=== PATIENT | female | born 1970 | race Caucasian/White ===

== ENCOUNTER → 2016-06-08 | Outpatient (CLI) | payer OTHER ==
[~2016-06-08] MED LIST: CHOL100084 PO; DILT180C PO; DIPH50CA33 PO; FLUT16SP22 NS; HCTZ12.5T PO; LISI-596 PO; LORA10CA PO; NITR-65 PO; OMEG1CAP51 PO; OMEP20CA12 PO; PHEN200T27 PO; POTA20TA15 PO; WARF5TAB PO
--- OUTSIDE RECORDS SUMMARY | 2016-06-08 12:40 | XMS REPORT | Continuity of Care Document ---
Author Author [facility] Organization [facility] Address Unknown Phone Unavailable Care Team Providers Care Asw/Asuw Tactical Air Controller Name Role Phone MOSHE JUAREZ DO PCP Insurance Providers Payer Name Policy Number Subscriber Name Relationship Enter Insurance Name [id number] Edouard Perrin Advance Directives Directive Response Recorded [...] Severity Reaction Status Last Updated barium iodide ([id number]) Allergy Unknown Active 12/08/14 Immunizations No immunization records. Vital Signs Acute Vital Signs Vital Response Date/Time Temperature (Fahrenheit) 98.4 degrees F (97.6 - 99.5) Temperature (Calculated Celsius) 36.29054 degrees C (36.4 - 37.5) Pulse Rate (adult) 98 bpm (60 - 90) Respiratory Rate 18 bpm (12 - 24) O2 Sat by Pulse Oximetry 98 % (88 - 100) Blood Pressure 148/92 mm Hg Blood Pressure Mean 110 mm Hg Pain Pain Intensity 0 Height (Feet) 5 feet Height (Inches) 3 inches Height (Calculated Centimeters) 160.317683 cm Weight (Pounds) 265 pounds Weight (Calculated Kilograms) 120.292417 kilograms Calculated BMI 46.94 Results Laboratory Results [...] SELECTED GROUPS OF HIGH RISK PATIENTS. [employer] CONSENSUS CONFERENCE ON ANTITHROMBOTIC THERAPY (2000). Urine Color RED * 12/07/2014 12:20am 12/08/2014 12:56am Urine Clarity VERY CLOUDY * 12/07/2014 12:20am 12/08/2014 12:56am Urine pH 5 5-9 12/07/2014 12:20am 12/08/2014 12:56am Urine Specific [place] 1.015 * 1.016-1.022 12/07/2014 12:20am 2014 12:56am [...] Encounter Location Date/Time Departed Emergency Room [facility] 12/07/14 11:51pm Registered Clinic [facility] 11/23/14 7:55am Recent Diagnosis
--- NOTE | 2016-06-08 17:16 | Diagnostic Imaging Report ---
Bilateral screening mammogram. The current study was also evaluated with a Computer Aided Detection (CAD) system. INDICATION: Screening. No current complaints stated on the questionnaire. COMPARISON: 10/27/14. FINDINGS: The breasts are composed of scattered fibroglandular densities. There are occasional benign-appearing calcifications. Allowing for technique and positional differences, no suspicious change is seen. IMPRESSION: No significant change. ACR BI-RADS Category 2: Benign findings. Result letter will be mailed to the patient. Note: At least 10% of breast cancer is not imaged by mammography. Dictated by: Dictated on workstation # [id number]
== END ==
LOC: RAD 12:29
PROVIDERS: ATTEND Obstetrics & Gynecology Gynecology
DX: Z12.31 Encounter for screening mammogram for malignant neoplasm of breast (principal)
CPT/HCPCS: 77067

== ENCOUNTER → 2016-06-08 | Outpatient (CLI) | payer OTHER ==
--- OUTSIDE RECORDS SUMMARY | 2016-06-08 12:32 | XMS REPORT | Continuity of Care Document ---
Author Author [facility] Organization [facility] Address Unknown Phone Unavailable Care Team Providers Care Slope Hoist Operator Name Role Phone MOSHE JUAREZ DO PCP Insurance Providers Payer Name Policy Number Subscriber Name Relationship Enter Insurance Name [id number] Edouard Perrin Advance Directives Directive Response Recorded Date/Time Advance Directives No 12/07/14 11:57pm Resuscitation Status Full Code 12/07/14 11:57pm Problems Medical Problems Problem Onset Date Status Urinary tract infection Unknown Active Hematuria Unknown Active Medications Medication Dose Route Sig Days/Qty Instructions Order Date Discontinued Date Status Warfarin Sodium 5 Mg PO DAILY 12/08/14 Active Lisinopril 20 Mg PO DAILY 12/08/14 Active Diltiazem Hcl 180 Mg PO DAILY 12/08/14 Active Hydrochlorothiazide 12.5 Mg PO DAILY 12/08/14 Active Omeprazole 20 Mg PO DAILY 30 Qty 12/08/14 Active Potassium Chloride 20 Meq PO DAILY 12/08/14 Active Docosahexanoic Acid/Epa 1 Cap PO DAILY 12/08/14 Active Loratadine 10 Mg PO DAILY 12/08/14 Active Cholecalciferol 1,000 Unit PO DAILY 12/08/14 Active Fluticasone Propionate 2 Sprays NS DAILY 12/08/14 Active Diphenhydramine HCl 25 Mg PO BEDTIME 12/08/14 Active Nitrofurantoin Macrocrystals 1 Each PO TWICE A DAY 14 Qty FOR INFECTION 12/08/14 Active Phenazopyridine HCl 1 Each PO THREE TIMES A DAY PRN PAIN 15 Qty Active Social History Social History Problem Response Recorded Date/Time Alcohol Use Denies Use 12/07/2014 11:57pm Recreational Drug Use No 12/07/2014 11:57pm Recent Foreign Travel No 12/07/2014 11:57pm Recent Infectious Disease Exposure No 12/07/2014 11:57pm Hospitalization with Isolation Denies 12/07/2014 11:57pm Smoking Status Never a Smoker 12/07/2014 11:57pm Query Response Start Date Stop Date Smoking Status Never a Smoker Hospital Discharge Instructions No hospital discharge instructions. Plan of Care No plan of care. Functional Status No functional status results. Allergies, Adverse Reactions, Alerts Allergen Type Severity Reaction Status Last Updated barium iodide ([id number]) Allergy Unknown Active 12/08/14 Immunizations No immunization records. Vital Signs Acute Vital Signs Vital Response Date/Time Temperature (Fahrenheit) 98.4 degrees F (97.6 - 99.5) Temperature (Calculated Celsius) 36.87005 degrees C (36.4 - 37.5) Pulse Rate (adult) 98 bpm (60 - 90) Respiratory Rate 18 bpm (12 - 24) O2 Sat by Pulse Oximetry 98 % (88 - 100) Blood Pressure 148/92 mm Hg Blood Pressure Mean 110 mm Hg Pain Pain Intensity 0 Height (Feet) 5 feet Height (Inches) 3 inches Height (Calculated Centimeters) 160.552487 cm Weight (Pounds) 265 pounds Weight (Calculated Kilograms) 120.478173 kilograms Calculated BMI 46.94 Results Laboratory Results Test Name Result Units Flags Reference Collection Date/Time Result Date/ Time Comments Prothrombin Time 28.2 SEC H 12.2-14.7 12/08/2014 12:18am 12/08/2014 12: 38am INR Comment 2.6 H 0.8-1.4 12/08/2014 12:18am 12/08/2014 12:38am INTERPRETIVE DATA SUGGESTED THERAPEUTIC RANGE FOR INR'S: VENOUS THROMBOSIS, PULMONARY EMBOLISM, OR PREVENTION OF SYSTEMIC EMBOLISM (EG. IN ATRIAL FIBRILLATION): 2.0 - 3.0 MECHANICAL PROSTHETIC HEART VALVES: 2.5 - 3.5* *NOTE: INR'S UP TO 4.5 MAY BE NECESSARY IN SELECTED GROUPS OF HIGH RISK PATIENTS. [employer] CONSENSUS CONFERENCE ON ANTITHROMBOTIC THERAPY (2000). Urine Color RED * 12/07/2014 12:20am 12/08/2014 12:56am Urine Clarity VERY CLOUDY * 12/07/2014 12:20am 12/08/2014 12:56am Urine pH 5 5-9 12/07/2014 12:20am 12/08/2014 12:56am Urine Specific [place] 1.015 * 1.016-1.022 12/07/2014 12:20am 2014 12:56am Urine Protein 3+ * NEGATIVE 12/07/2014 12:20am 12/08/2014 12:56am Urine Glucose (UA) NEGATIVE NEGATIVE 12/07/2014 12:20am 12/08/2014 12 :56am Urine RBC (Auto) 5+ * NEGATIVE 12/07/2014 12:20am 12/08/2014 12:56am Urine Ketones NEGATIVE NEGATIVE 12/07/2014 12:20am 12/08/2014 12: 56am Urine Nitrite NEGATIVE NEGATIVE 12/07/2014 12:20am 12/08/2014 12: 56am Urine Bilirubin NEGATIVE NEGATIVE 12/07/2014 12:20am 12/08/2014 12: 56am Urine Urobilinogen NORMAL MG/DL NORMAL 12/07/2014 12:20am 12/08/2014 12 :56am Urine Leukocyte Esterase 3+ * NEGATIVE 12/07/2014 12:20am 12/08/2014 12 :56am Urine RBC TNTC /HPF * 12/07/2014 12:20am 12/08/2014 12:56am Urine WBC 5-10 /HPF * 12/07/2014 12:20am 12/08/2014 12:56am Urine Bacteria FEW /HPF * 12/07/2014 12:20am 12/08/2014 12:56am Urine Crystals NONE /LPF 12/07/2014 12:20am 12/08/2014 12:56am Urine Casts NONE /LPF 12/07/2014 12:20am 12/08/2014 12:56am Urine Mucus NEGATIVE /LPF 12/07/2014 12:20am 12/08/2014 12:56am Urine Culture Indicated YES 12/07/2014 12:20am 12/08/2014 12:56am Procedures No known history of procedures. Encounters Encounter Location Date/Time Departed Emergency Room [facility] 12/07/14 11:51pm Registered Clinic [facility] 11/23/14 7:55am Recent Diagnosis
--- NOTE | 2016-06-08 14:28 | Diagnostic Imaging Report ---
PROCEDURE: CT chest without contrast. TECHNIQUE: Multiple noncontiguous 1 mm thick axial images were obtained through the chest without the use of intravenous contrast. This is performed the in the supine inspiration, expiration and prone inspiration based on a HRCT protocol, sampling images in the upper, mid and lower lung zones. INDICATION: Interstitial lung disease. No prior studies are available for comparison. FINDINGS: There is nonspecific focal scarring in the right lung apex and in the posterior segment of the right and left lower lobes. There is relative sparing of the rest of the segments in the lower lobes except for mild extension into the superior segment of the lower lobe on both sides. There is associated mild bronchiectasis. There is no significant airspace consolidation or groundglass opacity to suggest active disease. The findings are nonspecific and could be related to scarring after possibly aspiration pneumonitis and right upper lobe infection. No significant air-trapping is seen on the expiratory phase. No pleural effusion. No pericardial effusion. There is no mediastinal mass. Sections in the upper abdomen demonstrate no definite abnormality. The osseous structures appear grossly unremarkable. IMPRESSION: Nonspecific focal areas of scarring involving mostly the posterior segments of the lower lobes and the right lung apex with no active consolidation or groundglass opacity seen. Dictated by: Dictated on workstation # [id number]
== END ==
LOC: RAD 12:28
PROVIDERS: ATTEND Internal Medicine
DX: J84.9 Interstitial pulmonary disease, unspecified (principal)
CPT/HCPCS: 71250

== ENCOUNTER → 2016-06-09 | Outpatient (CLI) | payer OTHER ==
--- OUTSIDE RECORDS SUMMARY | 2016-06-09 16:04 | XMS REPORT | Continuity of Care Document ---
Author Author [facility] Organization [facility] Address Unknown Phone Unavailable Care Team Providers Care Hot Metal Charger Name Role Phone MOSHE JUAREZ DO PCP Insurance Providers Payer Name Policy Number Subscriber Name Relationship Enter Insurance Name [id number] Edouard Perrin Advance Directives Directive Response Recorded [...] Severity Reaction Status Last Updated barium iodide ([id number]) Allergy Unknown Active 12/08/14 Immunizations No immunization records. Vital Signs Acute Vital Signs Vital Response Date/Time Temperature (Fahrenheit) 98.4 degrees F (97.6 - 99.5) Temperature (Calculated Celsius) 36.97734 degrees C (36.4 - 37.5) Pulse Rate (adult) 98 bpm (60 - 90) Respiratory Rate 18 bpm (12 - 24) O2 Sat by Pulse Oximetry 98 % (88 - 100) Blood Pressure 148/92 mm Hg Blood Pressure Mean 110 mm Hg Pain Pain Intensity 0 Height (Feet) 5 feet Height (Inches) 3 inches Height (Calculated Centimeters) 160.541198 cm Weight (Pounds) 265 pounds Weight (Calculated Kilograms) 120.953643 kilograms Calculated BMI 46.94 Results Laboratory Results [...] SELECTED GROUPS OF HIGH RISK PATIENTS. [employer] CONSENSUS CONFERENCE ON ANTITHROMBOTIC THERAPY (2000). Urine Color RED * 12/07/2014 12:20am 12/08/2014 12:56am Urine Clarity VERY CLOUDY * 12/07/2014 12:20am 12/08/2014 12:56am Urine pH 5 5-9 12/07/2014 12:20am 12/08/2014 12:56am Urine Specific [place] 1.015 * 1.016-1.022 12/07/2014 12:20am 2014 12:56am [...] Encounter Location Date/Time Departed Emergency Room [facility] 12/07/14 11:51pm Registered Clinic [facility] 11/23/14 7:55am Recent Diagnosis
== END ==
LOC: RT 16:02
PROVIDERS: ATTEND Internal Medicine
DX: J84.9 Interstitial pulmonary disease, unspecified (principal)
CPT/HCPCS: 94060; 94726; 94729; 94761

== ENCOUNTER 2017-07-18 19:12 | Emergency (ER) | payer OTHER ==
[~2017-07-18] VITALS: Ht 160 cm; Wt 115.7 kg
--- OUTSIDE RECORDS SUMMARY | 2017-07-18 19:17 | XMS REPORT | Continuity of Care Document ---
Author Author [facility] Organization [facility] Address Unknown Phone Unavailable Allergies Active Description Code Type Severity Reaction Onset Reported/Identified Relationship to Patient Clinical Status Yes barium iodide [id number] Drug Allergy Unknown N/A 12/08/2014 Medications There is no data. Problems Date Dx Coded Attending Type Code Diagnosis Diagnosed By 10/27/2014 Ot 611.72 10/27/2014 Ot 625.8 10/27/2014 Ot 611.72 10/27/2014 Ot 625.8 11/23/2014 Ot 611.72 11/23/2014 Ot 625.8 11/23/2014 MOSHE JUAREZ DO Ot 611.72 12/08/2014 Ot 611.72 12/08/2014 Ot 625.8 12/08/2014 MOSHE JUAREZ DO Ot 611.72 12/08/2014 GHANSHYAM PHAN MD Ot 473.9 12/08/2014 JOHANNA BURRELL, BEVERLY Elliott Ot 599.0 URIN TRACT INFECTION NOS 12/08/2014 JOHANNA BURRELL, BEVERLY Elliott Ot 599.70 HEMATURIA, UNSPECIFIED 06/06/2016 Ot 611.72 LUMP OR MASS IN BREAST 06/06/2016 Ot 625.8 FEM GENITAL SYMPTOMS NEC 06/06/2016 MOSHE JUAREZ DO Ot 611.72 LUMP OR MASS IN BREAST 06/06/2016 GHANSHYAM PHAN MD Ot 473.9 CHRONIC SINUSITIS NOS 06/07/2016 Ot 611.72 LUMP OR MASS IN BREAST 06/07/2016 Ot 625.8 FEM GENITAL SYMPTOMS NEC 06/07/2016 MOSHE JUAREZ DO Ot 611.72 LUMP OR MASS IN BREAST 06/07/2016 GHANSHYAM PHAN MD Ot 473.9 CHRONIC SINUSITIS NOS 06/08/2016 GAUDENCIO POWER DO Ot Z12.31 ENCNTR SCREEN MAMMOGRAM FOR MALIGNANT NE 06/08/2016 FABIEN STEEL MD Ot J84.9 INTERSTITIAL PULMONARY DISEASE, UNSPECIF 06/09/2016 FABIEN STEEL MD, Ot J84.9 INTERSTITIAL PULMONARY DISEASE, UNSPECIF 06/12/2016 FABIEN STEEL MD, Ot J84.9 INTERSTITIAL PULMONARY DISEASE, UNSPECIF 07/07/2016 FABIEN STEEL MD, Ot J84.9 INTERSTITIAL PULMONARY DISEASE, UNSPECIF 10/06/2016 Ot 611.72 LUMP OR MASS IN BREAST 10/06/2016 Ot 625.8 FEM GENITAL SYMPTOMS NEC 10/06/2016 MOSHE JUAREZ DO Ot 611.72 LUMP OR MASS IN BREAST 10/06/2016 EMILIE BURRELL, GHANSHYAM De Los Santos Ot 473.9 CHRONIC SINUSITIS NOS 10/06/2016 GAUDENCIO POWER DO Ot Z12.31 ENCNTR SCREEN MAMMOGRAM FOR MALIGNANT NE 10/06/2016 FABIEN STEEL MD, Ot J84.9 INTERSTITIAL PULMONARY DISEASE, UNSPECIF 10/06/2016 FABIEN STEEL MD, Ot J84.9 INTERSTITIAL PULMONARY DISEASE, UNSPECIF 12/23/2016 GAUDENCIO POWER DO, Ot Z12.31 ENCNTR SCREEN MAMMOGRAM FOR MALIGNANT NE 12/23/2016 FABIEN STEEL MD, Ot84.9 INTERSTITIAL PULMONARY DISEASE, UNSPECIF 12/23/2016 FABIEN STEEL MD, Ot84.9 INTERSTITIAL PULMONARY DISEASE, UNSPECIF Procedures There is no data. Results There is no data. Encounters ACCT No. Visit Date/Time Discharge Status Pt. Type Provider Facility Loc./Unit Complaint [id number] 06/09/2016 16:02:00 06/09/2016 23:59:59 CLS Outpatient FABIEN STEEL MD [facility] RT ILD [id number] 06/08/2016 12:29:00 06/08/2016 23:59:59 CLS Outpatient GAUDENCIO POWER DO [facility] RAD SCREENING [id number] 06/08/2016 12:28:00 06/08/2016 23:59:59 CLS Outpatient FABIEN STEEL MD [facility] RAD ILD [id number] 12/07/2014 23:51:00 12/08/2014 01:39:00 DIS Emergency BEVERLY SPENCER MD [facility] ER POSS UTI,BLOOD IN URINE [id number] 11/23/2014 07:55:00 11/23/2014 23:59:59 CLS Outpatient GHANSHYAM PHAN MD [facility] RAD CHRONIC SINUSITIS [id number] 10/27/2014 10:14:00 10/27/2014 23:59:59 CLS Outpatient MOSHE JUAREZ DO [facility] RAD SCREENING [id number] 12/21/2012 12:50:00 12/21/2012 23:59:59 CLS Outpatient [id number] 11/24/2012 16:12:00 11/24/2012 23:59:59 CLS Outpatient [id number] 07/26/2012 09:54:00 Document Registration [id number] 01/02/2012 09:59:00 Document Registration
[2017-07-18 21:18] LABS: BASOPHILS % (AUTO) 0 % (0-10); EOSINOPHILS # (AUTO) 0.2 10^3/uL (0.0-0.3); EOSINOPHILS % (AUTO) 2 % (0-10); HEMATOCRIT 41 % (35-52); LYMPHOCYTES # (AUTO) 2.1 X 10^3 (1.0-4.0); LYMPHOCYTES % (AUTO) 22 % (12-44); MEAN CORPUSCULAR HEMOGLOBIN 29 PG (25-34); MEAN CORPUSCULAR HGB CONC 35 G/DL (32-36); MEAN CORPUSCULAR VOLUME 85 FL (80-99); MEAN PLATELET VOLUME 10.5 FL (7.4-10.4); MONOCYTES # (AUTO) 0.4 X 10^3 (0.0-1.0); MONOCYTES % (AUTO) 4 % (0-12); NEUTROPHILS # (AUTO) 7.1 X 10^3 (1.8-7.8); NEUTROPHILS % (AUTO) 72 % (42-75); PLATELET COUNT 315 10^3/uL (130-400); RED BLOOD COUNT 4.79 10^6/uL (4.35-5.85); RED CELL DISTRIBUTION WIDTH 13.3 % (10.0-14.5); WHITE BLOOD COUNT 9.8 10^3/uL (4.3-11.0)
[2017-07-18 21:33] LABS: INR 1.5 (0.8-1.4); PROTHROMBIN TIME PATIENT 18.4 SEC (12.2-14.7)
[2017-07-18 21:42] LABS: ALANINE AMINOTRANSFERASE 22 U/L (0-55); ALBUMIN 4.3 GM/DL (3.2-4.5); ALKALINE PHOSPHATASE 48 U/L (40-136); BILIRUBIN,TOTAL 0.4 MG/DL (0.1-1.0); BUN/CREATININE RATIO 14; CALCIUM 9.8 MG/DL (8.5-10.1); CARBON DIOXIDE 24 MMOL/L (21-32); CHLORIDE 102 MMOL/L (98-107); CREATININE SERUM 0.69 MG/DL (0.60-1.30); GFR ESTIMATED > 60; GLUCOSE 105 MG/DL (70-105); POTASSIUM 3.6 MMOL/L (3.6-5.0); SODIUM 136 MMOL/L (135-145); TOTAL PROTEIN 8.3 GM/DL (6.4-8.2)
--- NOTE | 2017-07-18 21:56 | ED General ---
General Chief Complaint: Upper Extremity Stated Complaint: LEFT ARM TINGLING Nursing Triage Note: pt c/o numbness in left forearm intermittently x 1 week, but persistent today. no known injury. reports tingling in upper arm at times also. she reports inr was elevated et potassium was low last week. hx of antiphospholipid antibody syndrome. Nursing Sepsis Screen: No Definite Risk Source of Information: Patient Exam Limitations: No Limitations History of Present Illness Date Seen by Provider: Jul 18, 2017 Time Seen by Provider: 20:20 Initial Comments This 47-year-old woman presents to emergency room with complaints of numbness and pain in the left arm with fluctuating intensity over the past week. She reports it is very irritating to have her that it on her wrist earlier today. She denies any neck problems or known history of cervical disc disease. She has had several tension headaches recently. She took Tylenol without much benefit. She took Xanax at 17:00 which also did not help much. She reports last week her potassium and INR were elevated. She is concerned that her symptoms may be related to cardiac causes. She has had no shortness of breath or chest pain. She does have history of DVT and is on warfarin therapy. She also has a history of Sjogren's and interstitial lung disease. Allergies and Home Medications Allergies Coded Allergies: barium iodide (Unverified Allergy, Unknown, 12/08/14) Home Medications Cholecalciferol 1,000 Unit Tab, 1,000 UNIT PO DAILY, (Reported) Diltiazem Hcl 180 Mg Cap.sr.24h, 180 MG PO DAILY, (Reported) Diphenhydramine Hcl 50 Mg Tablet, 25 MG PO HS, (Reported) Docosahexanoic Acid/Epa 1 Cap Capsule, 1 CAP PO DAILY, (Reported) Fluticasone Propionate 16 Gm Naspr, 2 SPRAYS NS DAILY PRN for CONGESTION, ( Reported) Gabapentin 300 Mg Capsule, 300 MG PO BID PRN for PAIN-MODERATE TO SEVERE Prescribed by: BEVERLY PICKETT on 07/18/17 2875 Hydrochlorothiazide 12.5 Mg Cap, 12.5 MG PO DAILY, (Reported) Lisinopril 20 Mg Tablet, 20 MG PO DAILY, (Reported) Loratadine 10 Mg Capsule, 10 MG PO DAILY, (Reported) Omeprazole 20 Mg Capsule.dr, 20 MG PO DAILY, (Reported) Potassium Chloride 20 Meq Tab.prt.sr, 40 MEQ PO DAILY, (Reported) Prednisone 20 Mg Tab, 20 MG PO DAILY Prescribed by: BEVERLY PICKETT on 07/18/172234 Warfarin Sodium 5 Mg Tablet, 5 MG PO DAILY, (Reported) Patient Home Medication List Home Medication List Reviewed: Yes Constitutional: no symptoms reported EENTM: no symptoms reported Respiratory: no symptoms reported Cardiovascular: no symptoms reported Gastrointestinal: no symptoms reported Genitourinary: no symptoms reported Musculoskeletal: see HPI Skin: no symptoms reported Psychiatric/Neurological: See HPI Hematologic/Lymphatic: No Symptoms Reported Past Amzmqvr-Dbudfl-Qkupwh Hx Patient Social History Alcohol Use: Denies Use Recreational Drug Use: No Smoking Status: Never a Smoker Recent Foreign Travel: No Contact w/Someone Who Travel: No Recent Infectious Disease Expo: No Recent Hopitalizations: No Immunizations Up To Date Date of Influenza Vaccine: Feb 05, 2017 Surgeries History of Surgeries: Yes (lumbar laminectomy, right carpal tunnel, right thumb fusion) Surgeries: Bladder Surgery, Orthopedic Respiratory History of Respiratory Disorde: Yes (INTERSTITIAL LUNG DISEASE) Cardiovascular History of Cardiac Disorders: Yes (TACHYCARDIA) Cardiac Disorders: Deep Vein Thrombosis, Hypertension Neurological History of Neurological Disord: No Reproductive System Last Menstrual Period: Jun 25, 2017 Hx Reproductive Disorders: No Genitourinary History of Genitourinary Disor: No Gastrointestinal History of Gastrointestinal Di: Yes Gastrointestinal Disorders: Gastroesophageal Reflux Musculoskeletal History of Musculoskeletal Dis: Yes Musculoskeletal Disorders: Chronic Back Pain Endocrine History of Endocrine Disorders: Yes (Sjogren's) HEENT History of HEENT Disorders: No Cancer History of Cancer: No Psychosocial History of Psychiatric Problem: No Integumentary History of Skin or Integumenta: No Blood Transfusions History of Blood Disorders: Yes (BLOOD CLOT, ANTIPHOSPHOLIPID SYNDROME) Family Medical History Significant Family History: DVT/PE, Hypertension Physical Exam Vital Signs Vital Signs - First Documented 07/18/17 19:41 Temp 98.9 Pulse 100 Resp 16 B/P (MAP) 166/10 (61) Pulse Ox 98 O2 Delivery Room Air Capillary Refill : Less Than 3 Seconds General Appearance: No Apparent Distress, WD/WN HEENT: PERRL/EOMI, Normal ENT Inspection Neck: Normal Inspection, Supple, Tender Lateral Respiratory: Lungs Clear, Normal Breath Sounds, No Accessory Muscle Use, No Respiratory Distress Cardiovascular: Regular Rate, Rhythm, No Edema, No Murmur, Normal Peripheral Pulses Gastrointestinal: Non Tender, Soft Extremity: Normal Inspection, No Pedal Edema, Other (Mild tenderness to palpation of the left upper extremity. Range of motion, sensation, capillary refill, and radial pulse normal.) Neurologic/Psychiatric: Alert, Oriented x3, No Motor/Sensory Deficits, Normal Mood/Affect, lapper II-XII Norm as Tested Progress/Results/Core Measures Suspected Sepsis Recent Fever Within 48 Hours: No Infection Criteria Present: None New/Unexplained Altered Menta: No Sepsis Screen: No Definite Risk Sepsis Diagnosis: SIRS Temperature:98.9 Pulse: 100 Respiratory Rate: 16 Laboratory Tests 07/18/17 21:10: White Blood Count 9.8 Blood Pressure 166 /10 Mean: 61 Laboratory Tests 07/18/17 21:10: Creatinine 0.69, INR Comment 1.5H, Platelet Count 315, Total Bilirubin 0.4 Results/Orders Lab Results Laboratory Tests Test 07/18/17 21:10 Range/Units White Blood Count 9.8 4.3-11.0 10^3/uL Red Blood Count 4.79 4.35-5.85 10^6/uL Hemoglobin 14.0 11.5-16.0 G/DL Hematocrit 41 35-52 % Mean Corpuscular Volume 85 80-99 FL Mean Corpuscular Hemoglobin 29 25-34 PG Mean Corpuscular Hemoglobin Concent 35 32-36 G/DL Red Cell Distribution Width 13.3 10.0-14.5 % Platelet Count 315 130-400 10^3/uL Mean Platelet Volume 10.5 H 7.4-10.4 FL Neutrophils (%) (Auto) 72 42-75 % Lymphocytes (%) (Auto) 22 12-44 % Monocytes (%) (Auto) 4 0-12 % Eosinophils (%) (Auto) 2 0-10 % Basophils (%) (Auto) 0 0-10 % Neutrophils # (Auto) 7.1 1.8-7.8 X 10^3 Lymphocytes # (Auto) 2.1 1.0-4.0 X 10^3 Monocytes # (Auto) 0.4 0.0-1.0 X 10^3 Eosinophils # (Auto) 0.2 0.0-0.3 10^3/uL Basophils # (Auto) 0.0 0.0-0.1 10^3/uL Prothrombin Time 18.4 H 12.2-14.7 SEC INR Comment 1.5 H 0.8-1.4 Activated Partial Thromboplast Time 32 24-35 SEC Sodium Level 136 135-145 MMOL/L Potassium Level 3.6 3.6-5.0 MMOL/L Chloride Level 102 98-107 MMOL/L Carbon Dioxide Level 24 21-32 MMOL/L Anion Gap 10 5-14 MMOL/L Blood Urea Nitrogen 10 7-18 MG/DL Creatinine 0.69 0.60-1.30 MG/DL Estimat Glomerular Filtration Rate > 60 BUN/Creatinine Ratio 14 Glucose Level 105 70-105 MG/DL Calcium Level 9.8 8.5-10.1 MG/DL Total Bilirubin 0.4 0.1-1.0 MG/DL Aspartate Amino Transf (AST/SGOT) 22 5-34 U/L Alanine Aminotransferase (ALT/SGPT) 22 0-55 U/L Alkaline Phosphatase 48 40-136 U/L Troponin I < 0.30 <0.30 NG/ML Total Protein 8.3 H 6.4-8.2 GM/DL Albumin 4.3 3.2-4.5 GM/DL My Orders Orders - BEVERLY SPENCER MD Cbc With Automated Diff (07/18/17 20:53) Comprehensive Metabolic Panel (07/18/17 20:53) Troponin I (07/18/17 20:53) Saline Lock/Iv-Start (07/18/17 20:53) Ekg Tracing (07/18/17 20:53) Monitor-Rhythm Ecg Trace Only (07/18/17 20:53) Protime With Inr (07/18/17 20:53) Partial Thromboplastin Time (07/18/17 20:53) Vital Signs/I&O Vital Sign - Last 12Hours 07/18/17 23:00 Pulse 89 Resp 16 B/P (MAP) 158/88 Pulse Ox 97 Capillary Refill : Less Than 3 Seconds Blood Pressure Mean: 61 Progress Note : Progress Note She was most concerned that her symptoms may be related to her heart. Troponin and EKG were unremarkable. Electrolytes were unremarkable. Patient was offered prednisone and gabapentin. She would like printed prescriptions and she will consider starting them later if symptoms do not improve. She was encouraged to follow up with her primary care provider to discuss further workup which might include MRI of the head and neck. Symptoms seem most consistent with cervical radiculopathy. ECG Initial ECG Impression Date: Jul 19, 2017 Initial ECG Impression Time: 20:56 Initial ECG Rate: 93 Initial ECG Rhythm: Normal Sinus Initial ECG Intervals: Normal Comment Normal sinus rhythm with no ST elevation or depression. No abnormal intervals. Left axis deviation by automated read. Departure Impression Impression: Primary Impression: Arm paresthesia, left Additional Impression: subtherapeutic INR Disposition: 01 HOME, SELF-CARE Condition: Stable Departure-Patient Inst. Decision time for Depature: 22:31 Referrals: MOSHE JUAREZ DO (PCP) Primary Care Physician Patient Instructions: Paresthesias (DC), Radiculopathy Add. Discharge Instructions: Contact your primary care provider tomorrow and schedule a follow-up appointment. Also seek further instructions on your INR as it is below therapeutic range today at 1.5. You may trial the prednisone and gabapentin as prescribed for your arm pain. Your arm pain may be related to cervical radiculopathy. Please discuss further evaluation with her primary care provider. Return to the emergency room if you develop worsening symptoms, especially if you develop new symptoms such as chest pain or shortness of air. All discharge instructions reviewed with patient and/or family. Voiced understanding. Scripts Prednisone (Prednisone) 20 Mg Tab 20 MG PO DAILY, #4 TAB Prov: BEVERLY SPENCER MD 07/18/17 Gabapentin (Gabapentin) 300 Mg Capsule 300 MG PO BID Y for PAIN-MODERATE TO SEVERE, #20 CAP Prov: BEVERLY SPENCER MD 07/18/17 BEVERLY SPENCER MD Jul 18, 2017 21:56
[2017-07-18] MEDS ORDERED: PRD20T PO (22:35)
[2017-07-18] MEDS ORDERED: GABA-488 PO (22:35)
[2017-07-18 23:00] VITALS: BP 158/88
== END 2017-07-18 23:00 | disposition home or self-care (01) ==
LOC: EDUNIT# 19:12 → ER 19:14
DX: R20.2 Paresthesia of skin (principal); R79.1 Abnormal coagulation profile; I10 Essential (primary) hypertension; K21.9 Gastro-esophageal reflux disease without esophagitis; Z79.01 Long term (current) use of anticoagulants; Z86.718 Personal history of other venous thrombosis and embolism; Z91.041 Radiographic dye allergy status; Z86.2 Personal history of diseases of the blood and blood-forming organs and certain disorders involving the immune mechanism
CPT/HCPCS: 36415; 80053; 84484; 85025; 85610; 85730; 93005; 93041

== ENCOUNTER 2018-07-29 21:39 | Emergency (ER) | payer OTHER ==
[~2018-07-29] VITALS: Ht 160 cm; Wt 106.6 kg
[~2018-07-29 21:39] MED LIST changes: +GABA-488 PO; +PRD20T PO
[2018-07-29] MEDS ORDERED: NS IV 1000 ML 1,000 ML IV ONE (22:46)
[2018-07-29 23:06] LABS: BASOPHILS % (AUTO) 0 % (0-10); EOSINOPHILS # (AUTO) 0.1 10^3/uL (0.0-0.3); EOSINOPHILS % (AUTO) 2 % (0-10); HEMATOCRIT 41 % (35-52); HEMOGLOBIN 13.9 G/DL (11.5-16.0); LYMPHOCYTES # (AUTO) 0.9 X 10^3 (1.0-4.0); LYMPHOCYTES % (AUTO) 14 % (12-44); MEAN CORPUSCULAR HEMOGLOBIN 29 PG (25-34); MEAN CORPUSCULAR HGB CONC 34 G/DL (32-36); MEAN CORPUSCULAR VOLUME 85 FL (80-99); MEAN PLATELET VOLUME 10.6 FL (7.4-10.4); MONOCYTES # (AUTO) 0.5 X 10^3 (0.0-1.0); MONOCYTES % (AUTO) 8 % (0-12); NEUTROPHILS # (AUTO) 4.4 X 10^3 (1.8-7.8); NEUTROPHILS % (AUTO) 75 % (42-75); PLATELET COUNT 276 10^3/uL (130-400); RED CELL DISTRIBUTION WIDTH 13.5 % (10.0-14.5); WHITE BLOOD COUNT 5.9 10^3/uL (4.3-11.0)
[2018-07-29 23:19] LABS: INR 1.5 (0.8-1.4); PROTHROMBIN TIME PATIENT 18.7 SEC (12.2-14.7)
[2018-07-29 23:25] LABS: ERYTHROCYTE SEDIMENTATION RATE 44 MM/HR (0-20)
[2018-07-29 23:27] LABS: ALANINE AMINOTRANSFERASE 23 U/L (0-55); ALBUMIN 3.9 GM/DL (3.2-4.5); ALKALINE PHOSPHATASE 51 U/L (40-136); BILIRUBIN,TOTAL 0.2 MG/DL (0.1-1.0); BUN/CREATININE RATIO 19; CALCIUM 9.2 MG/DL (8.5-10.1); CARBON DIOXIDE 20 MMOL/L (21-32); CHLORIDE 101 MMOL/L (98-107); CREATININE SERUM 0.75 MG/DL (0.60-1.30); GFR ESTIMATED > 60; GLUCOSE 113 MG/DL (70-105); POTASSIUM 4.3 MMOL/L (3.6-5.0); SODIUM 135 MMOL/L (135-145); TOTAL PROTEIN 8.2 GM/DL (6.4-8.2)
[2018-07-29 23:47] LABS: TSH (THYROID ANALYZER) 1.68 UIU/ML (0.35-4.94)
[2018-07-30 00:05] LABS: BILIRUBIN,URINE NEGATIVE (NEGATIVE); CLARITY,URINE CLEAR; COLOR,URINE YELLOW; GLUCOSE, URINE (UA) NEGATIVE (NEGATIVE); KETONES,URINE NEGATIVE (NEGATIVE); LEUKOCYTE ESTERASE ,URINE NEGATIVE (NEGATIVE); NITRITE,URINE NEGATIVE (NEGATIVE); PH,URINE 6 (5-9); PROTEIN,URINE NEGATIVE (NEGATIVE); UROBILINOGEN,URINE NORMAL (NORMAL)
[2018-07-30 00:21] LABS: BACTERIA,URINE NEGATIVE /HPF
[2018-07-30] MEDS ORDERED: RX-OSELTAMIVIR 75 MG (TAMIFLU) BOX OF 10 PO STA (00:45)
[2018-07-30] MEDS ORDERED: RX-ONDANSETRON 4 MG ODT (ZOFRAN) PPK #4 SL STA (00:45)
--- NOTE | 2018-07-30 00:45 | ED General ---
General Chief Complaint: Cough/Cold/Flu Symptoms Stated Complaint: FEVER,COUGH,CONGESTION Nursing Triage Note: PATIENT STATES THAT SHE HAS BEEN SICK FOR 3 WEEKS BUT HAS HAD A FEVER SINCE SUNDAY. TODAY SHE IS HAVING NAUSEA WITH EVEN LIQUID INTAKE AND IS BEGINNING TO FEEL DEHYDRATED. Nursing Sepsis Screen: Possible Sepsis Risk Source of Information: Patient Exam Limitations: No Limitations History of Present Illness Date Seen by Provider: Jul 29, 2018 Time Seen by Provider: 21:41 Initial Comments This 48-year-old woman presents to the emergency room with complaints of fever for about 3 days. She has not felt well for about the past 3 weeks. Today she feels as though she is getting dehydrated. She has sore throat and ear congestion. She reports temperature at home was up to 102.8. Over the past 3 weeks she has had cough, runny nose, and ear popping. She finished a course of Omnicef and is now on doxycycline. She was beginning to feel better but has worsened over the last 3 days. She has Sjogren's, interstitial lung disease, and antiphospholipid antibody syndrome. She is therefore in a somewhat immunocompromised state from her chronic conditions. She is febrile at present. Her primary care provider is Dr. Tillman. She lives in [place], [place]. She has history of DVT and is anticoagulated with warfarin. Allergies and Home Medications Allergies Coded Allergies: barium iodide (Unverified Allergy, Unknown, 12/08/14) Home Medications Cholecalciferol 1,000 Unit Tab, 1,000 UNIT PO DAILY, (Reported) Diltiazem Hcl 180 Mg Cap.sr.24h, 180 MG PO DAILY, (Reported) Diphenhydramine Hcl 50 Mg Tablet, 25 MG PO HS, (Reported) Docosahexanoic Acid/Epa 1 Cap Capsule, 1 CAP PO DAILY, (Reported) Fluticasone Propionate 16 Gm Naspr, 2 SPRAYS NS DAILY PRN for CONGESTION, ( Reported) Gabapentin 300 Mg Capsule, 300 MG PO BID PRN for PAIN-MODERATE TO SEVERE Prescribed by: BEVERLY PICKETT on 07/18/17 8700 Hydrochlorothiazide 12.5 Mg Cap, 12.5 MG PO DAILY, (Reported) Lisinopril 20 Mg Tablet, 20 MG PO DAILY, (Reported) Loratadine 10 Mg Capsule, 10 MG PO DAILY, (Reported) Omeprazole 20 Mg Capsule.dr, 20 MG PO DAILY, (Reported) Potassium Chloride 20 Meq Tab.prt.sr, 40 MEQ PO DAILY, (Reported) Prednisone 20 Mg Tab, 20 MG PO DAILY Prescribed by: BEVERLY PICKETT on 07/18/172234 Warfarin Sodium 5 Mg Tablet, 5 MG PO DAILY, (Reported) Patient Home Medication List Home Medication List Reviewed: Yes Review of Systems Review of Systems Constitutional: see HPI EENTM: see HPI Respiratory: see HPI Cardiovascular: no symptoms reported Gastrointestinal: see HPI, nausea Genitourinary: no symptoms reported : No Musculoskeletal: no symptoms reported Skin: no symptoms reported Psychiatric/Neurological: No Symptoms Reported Hematologic/Lymphatic: See HPI Immunological/Allergic: see HPI Past Lwwzfkd-Ontyvt-Yovnxf Hx Past Med/Social Hx: Reviewed and Corrections made Patient Social History Alcohol Use: Denies Use Recreational Drug Use: No Smoking Status: Never a Smoker 2nd Hand Smoke Exposure: No Recent Foreign Travel: No Contact w/Someone Who Travel: No Recent Infectious Disease Expo: No Recent Hopitalizations: No Immunizations Up To Date Date of Influenza Vaccine: Feb 05, 2017 Past Medical History Surgeries: Yes (lumbar laminectomy, right carpal tunnel, right thumb fusion) Bladder Surgery, Orthopedic Respiratory: Yes (INTERSTITIAL LUNG DISEASE) Cardiac: Yes (TACHYCARDIA) Deep Vein Thrombosis, Hypertension Neurological: No Reproductive Disorders: No Genitourinary: No Gastrointestinal: Yes Gastroesophageal Reflux Musculoskeletal: Yes Chronic Back Pain Endocrine: Yes (Sjogren's) HEENT: No Cancer: No Psychosocial: No Integumentary: No Blood Disorders: Yes (BLOOD CLOT, ANTIPHOSPHOLIPID SYNDROME, Sjogren's) Family Medical History Reviewed Nursing Family Hx DVT/PE, Hypertension Physical Exam Vital Signs Vital Signs - First Documented 07/29/18 22:32 Temp 101.4 Pulse 124 Resp 22 B/P (MAP) 147/100 (116) Pulse Ox 94 O2 Delivery Room Air Capillary Refill : Less Than 3 Seconds Height, Weight, BMI Height: 5'3.00" Weight: 235lbs. 0oz. 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 as Tested Skin: Normal Color, Warm/Dry Focused Exam Lactate Level 07/29/18 22:50: Lactic Acid Level 0.80 Lactic Acid Level Progress/Results/Core Measures Suspected Sepsis Recent Fever Within 48 Hours: Yes Infection Criteria Present: Suspected New Infection New/Unexplained Altered Menta: No Sepsis Screen: Possible Sepsis Risk SIRS Temperature:101.4 Pulse: 124 Respiratory Rate: 22 Laboratory Tests 07/29/18 22:50: White Blood Count 5.9 Blood Pressure 147 /100 Mean: 116 07/29/18 22:50: Lactic Acid Level 0.80 Laboratory Tests 07/29/18 22:50: Creatinine 0.75, INR Comment 1.5H, Platelet Count 276, Total Bilirubin 0.2 Results/Orders Lab Results Micro Results My Orders Medications Given in ED Vital Signs/I&O Capillary Refill : Less Than 3 Seconds Blood Pressure Mean: 116 Progress Note : Progress Note Patient was hydrated with a liter of IV fluid. Workup was performed and yielded a positive influenza A screen. Patient was started on Tamiflu and Zofran with take-home packets. Patient is already on doxycycline which should cover for any concrete evidence pulmonary infection. Diagnostic Imaging Diagonstic Imaging: Xray Plain Films/CT/US/NM/MRI: chest Comments Chest x-ray viewed by me. Report not yet available. No definite infiltrate or consolidation noted by this provider. Departure Impression Primary Impression: Influenza A Additional Impression: Hypovolemia Disposition: HOME, SELF-CARE Condition: Improved Departure-Patient Inst. Decision time for Depature: 00:45 Referrals: MOSHE JUAREZ DO (PCP/Family) Primary Care Physician Patient Instructions: Flu, Adult (DC) Add. Discharge Instructions: Drink plenty of clear liquids. You may take Tylenol up to 1000 mg every 6 hours as needed for pain or fever. Complete the entire 10 doses of Tamiflu. You may use Zofran (ondansetron) dissolved under the tongue every 4 hours as needed for nausea and vomiting. Contact your doctor or return to care if you have worsening of symptoms despite these measures. Stay home from work until you are free of fever (temperature of 100F) for at least 24 hours without Tylenol. All discharge instructions reviewed with patient and/or family. Voiced understanding. BEVERLY SPENCER MD Jul 30, 2018 00:45
[2018-07-30 01:08] VITALS: BP 115/71
--- NOTE | 2018-07-30 06:10 | Diagnostic Imaging Report ---
CLINICAL INDICATION: Patient with cough and chest congestion with shortness of air. EXAM: Chest x-ray PA and lateral views. COMPARISONS: None. FINDINGS: Lungs/pleura: There are mild patchy infiltrates seen throughout both lungs. There is elevation of the right hemidiaphragm. There is no pneumothorax. There is no pleural effusion. Mediastinum: Unremarkable. Pulmonary vasculature: Unremarkable. Heart: Unremarkable. Bones/extrathoracic soft tissue: Unremarkable. IMPRESSION: 1: Mild bilateral lung infiltrates concerning for pneumonia. 2: There is elevation of the right hemidiaphragm. Dictated by: Dictated on workstation # [id number]
== END 2018-07-30 01:10 | disposition home or self-care (01) ==
LOC: EDUNIT# 21:39 → ER 21:40
DX: J10.1 Influenza due to other identified influenza virus with other respiratory manifestations (principal); E86.1 Hypovolemia; I10 Essential (primary) hypertension; K21.9 Gastro-esophageal reflux disease without esophagitis; M35.00 Sjogren syndrome, unspecified; Z82.49 Family history of ischemic heart disease and other diseases of the circulatory system; Z91.041 Radiographic dye allergy status; Z79.01 Long term (current) use of anticoagulants; Z79.52 Long term (current) use of systemic steroids; Z79.51 Long term (current) use of inhaled steroids; Z98.1 Arthrodesis status; Z98.890 Other specified postprocedural states; Z87.09 Personal history of other diseases of the respiratory system; Z86.718 Personal history of other venous thrombosis and embolism
CPT/HCPCS: 36415; 71046; 80053; 81000; 83605; 83735; 84443; 85025; 85610; 85652; 85730; 86141; 87040; 87088; 87804